=== PATIENT | female | born 1955 | race African-American/Black ===

== ENCOUNTER → 2017-05-03 | Outpatient (CLI) | payer MEDICAID ==
[~2017-05-03] MED LIST: ACETAMINOPHEN PO; AMOXICILLIN500 M1 PO; ASPIRIN81 M1 PO; CHANTIX PO; COUMADIN10 MG PO; COZAAR25 MG; FLEXERIL10 MG PO; LISINOPRIL PO; MOBIC PO; NORVASC PO; NORVASC10 MG PO; PERCOCET10 PO; POTASSIUM CHLO10 ME1 PO; PRAVACHOL PO; PREDNISONE PO; PRILOSEC20 M1 PO; TOPROL XL PO; ULTRAM PO; VICODIN 5/1 TAB 5/50 PO; VOLTAREN50 MG PO; ZOCOR PO
== END | disposition home or self-care (01) ==
LOC: CBAR 10:05
DX: Z01.818 Encounter for other preprocedural examination (principal); E66.01 Morbid (severe) obesity due to excess calories
CPT/HCPCS: G0463